=== PATIENT | female | born 1965 | race American Indian/Alaskan Native ===

== ENCOUNTER 2016-12-17 11:12 | Day surgery (SDC) | payer OTHER ==
[~2016-12-17 11:12] MED LIST: AK-Dilate OD ONE; AK-Dilate ONE; IOPIDINE OD ONE; IOPIDINE ONE; MYDRIACYL OD ONE; MYDRIACYL ONE
[2016-12-17] MEDS ORDERED: AK-Dilate OD ONE (11:45)
[2016-12-17] MEDS ORDERED: IOPIDINE OD ONE ×2 (11:45→12:38)
[2016-12-17] MEDS ORDERED: MYDRIACYL OD ONE (11:45)
[2016-12-17 12:44] VITALS: BP 154/88
== END 2016-12-17 12:39 | disposition home or self-care (01) ==
LOC: OR 11:12
PROVIDERS: ATTEND Ophthalmology
DX: H26.491 Other secondary cataract, right eye (principal)